=== PATIENT | female | born 1945 | race Caucasian/White ===

== ENCOUNTER 2020-05-24 11:49 | Observation (INO) ==
[2020-05-24] MEDS: Ringers Solution, Lactated 1,000 ML IVC SCH (12:28)
[2020-05-24 14:03] LABS: Adenovirus Not Detected (Not Detect); Bordetella Pertussis Not Detected (Not Detect); Chlamydophila pneumoniae Not Detected (Not Detect); Coronavirus 229E Not Detected (Not Detect); Coronavirus HKU1 Not Detected (Not Detect); Coronavirus NL63 Not Detected (Not Detect); Coronavirus OC43 Not Detected (Not Detect); Human Metapneumovirus Not Detected (Not Detect); Human Rhinovirus/Enterovirus Not Detected (Not Detect); Influenza A Subtype 2009 H1 Not Detected (Not Detect); Influenza B Not Detected (Not Detect); Mycoplasma pneumoniae Not Detected (Not Detect); Parainfluenza Virus 1 Not Detected (Not Detect); Parainfluenza Virus 2 Not Detected (Not Detect); Parainfluenza Virus 3 Not Detected (Not Detect); Parainfluenza Virus 4 Not Detected (Not Detect); Respiratory Syncytial Virus Not Detected (Not Detect); SARS-CoV-2 Not Detected (Not Detect)
[2020-05-24] MEDS ORDERED: Lidocaine -MPF 4% 5 ML AMPUL ONE ×2 (15:20→15:22)
[2020-05-24] MEDS ORDERED: Ondansetron 4 MG/2 ML VIAL ONE (15:20)
[2020-05-24] MEDS ORDERED: Dexamethasone 4 MG/ML VIAL ONE ×2 (15:20→15:23)
[2020-05-24] MEDS ORDERED: Lidocaine -MPF 2% 2 ML VIAL ONE (15:20)
[2020-05-24] MEDS ORDERED: *HR* FentaNYL (PF) 100 MCG/2 ML VIAL ONE (15:20)
[2020-05-24] MEDS ORDERED: *HR* Propofol 200 MG/20 ML VIAL IVP ONE (15:21)
[2020-05-24] MEDS ORDERED: EPHEDrine 50 MG/ML VIAL ONE (15:55)
[2020-05-24] MEDS ORDERED: *HR* EPINEPHrine 1 MG/10 ML SYRINGE INTRATRACH PRN (16:37)
[2020-05-24] MEDS ORDERED: Albuterol 2.5 MG/3 ML NEBULIZER IH ONE (17:56)
[2020-05-24] MEDS ORDERED: Albuterol 2.5 MG/3 ML NEBULIZER ONE (17:57)
[2020-05-24 19:41] LABS: Appearance of Body Fluid Cloudy (Clear); Volume of Body Fluid 15 mL
[2020-05-24] MEDS ORDERED: Naloxone 0.4 MG/ML INJ IVP PRN (19:55)
[2020-05-24] MEDS ORDERED: Ondansetron 4 MG/2 ML VIAL IVP PRN (19:55)
[2020-05-24] MEDS ORDERED: *HR* Promethazine 25 MG/ML VIAL IM PRN (19:55)
[2020-05-24 20:42] LABS: Hematocrit 38.8 % (35.3-44.9); Hemoglobin 12.1 g/dL (11.5-15.4); Mean Corpuscular HGB Conc 31.2 g/dL (31.6-35.5); Mean Corpuscular Hemoglobin 31.3 pg (28.0-33.3); Mean Corpuscular Volume 100.5 fL (83.0-100.0); Mean Platelet Volume 9.2 fL (9.4-12.4); Platelet Count 149 K/mcL (140-400); Red Blood Count 3.86 M/mcL (3.82-4.97); Red Cell Distribution Width 13.2 % (11.5-14.5); White Blood Count 6.4 K/mcL (4.3-11.1)
[2020-05-24 21:04] LABS: BUN/Creatinine Ratio 14 (6-26); Blood Urea Nitrogen 13 mg/dL (8-23); Calcium 9.4 mg/dL (8.6-10.3); Carbon Dioxide 27 mEq/L (23-29); Chloride 106 mEq/L (98-107); Glucose 115 mg/dL (70-105); Osmolality,Calculated 289 (280-300); Potassium 4.6 mEq/L (3.5-5.1); Sodium 139 mEq/L (136-145); eGFR For African Americans > 60 (> 60); eGFR For Non-African Americans 58 (> 60)
[2020-05-24 21:20] LABS: Appearance of Body Fluid Hazy (Clear); Volume of Body Fluid 17 mL
[2020-05-24] MEDS ORDERED: Ipratropium/Albuterol Neb 3 ML IH PRN (22:07)
[2020-05-25] MEDS: Ipratropium/Albuterol Neb 3 ML IH SCH ×5 (06:21→20:53)
[2020-05-25] MEDS: Ringers Solution, Lactated 1,000 ML IVC SCH (08:58)
[2020-05-25] MEDS: predniSONE 20 MG TABLET PO SCH (16:52)
[2020-05-26] MEDS: Ipratropium/Albuterol Neb 3 ML IH SCH ×5 (00:48→15:16)
[2020-05-26 01:54] LABS: Basophils % 0.2 %; Hematocrit 35.3 % (35.3-44.9); Hemoglobin 11.3 g/dL (11.5-15.4); Immature Granulocytes % 0.3 % (0-4); Lymphocytes # 0.8 K/mcL (0.6-4.6); Lymphocytes % 11.5 %; Mean Corpuscular Hemoglobin 31.8 pg (28.0-33.3); Mean Corpuscular Volume 99.4 fL (83.0-100.0); Mean Platelet Volume 9.6 fL (9.4-12.4); Monocytes # 0.1 K/mcL (0.0-1.3); Monocytes % 1.8 %; Neutrophils # 5.6 K/mcL (1.6-8.9); Platelet Count 147 K/mcL (140-400); Red Blood Count 3.55 M/mcL (3.82-4.97); Segmented Neutrophils % 86.2 %; White Blood Count 6.5 K/mcL (4.3-11.1)
[2020-05-26] MEDS: predniSONE 20 MG TABLET PO SCH (09:00)
[2020-05-26] MEDS ORDERED: Fluticasone Propionate Nasal 50 MCG/SPRAY BOTTLE NS SCH (09:00)
[2020-05-26 11:10] VITALS: BP 148/74
[2020-05-26] MEDS ORDERED: Acetaminophen 325 MG TABLET PO PRN (13:26)
== END 2020-05-26 16:26 | disposition home or self-care (01) ==
LOC: 3BNU 11:49 → SAMDAY 11:49 → 3BNU 20:02
PROVIDERS: ADMIT Internal Medicine; ATTEND Internal Medicine

== ENCOUNTER 2021-08-15 11:49 | Inpatient (IN) ==
[2021-08-15] MEDS ORDERED: 0.9 % Sodium Chloride 500 ML IVC ONE ×2 (12:33→18:49)
[2021-08-15 13:00] LABS: Basophils % 0.3 %; Eosinophils % 0.3 %; Hematocrit 31.7 % (35.3-44.9); Hemoglobin 10.3 g/dL (11.5-15.4); Immature Granulocytes % 0.9 % (0-4); Lymphocytes # 0.5 K/mcL (0.6-4.6); Lymphocytes % 7.7 %; Mean Corpuscular HGB Conc 32.5 g/dL (31.6-35.5); Mean Corpuscular Hemoglobin 32.2 pg (28.0-33.3); Mean Corpuscular Volume 99.1 fL (83.0-100.0); Mean Platelet Volume 9.1 fL (9.4-12.4); Monocytes # 0.3 K/mcL (0.0-1.3); Monocytes % 4.9 %; Platelet Count 164 K/mcL (140-400); Red Cell Distribution Width 13.2 % (11.5-14.5); Segmented Neutrophils % 85.9 %
[2021-08-15 13:21] LABS: Albumin 3.9 g/dL (3.5-5.7); Albumin/Globulin Ratio 1.4 (1.1-2.2); Bilirubin,Direct 0.2 mg/dL (0.0-0.2); Bilirubin,Indirect 0.6 mg/dL (0.0-1.0); Bilirubin,Total 0.8 mg/dL (0.3-1.0); Calcium 9.1 mg/dL (8.6-10.3); Globulin 2.8 g/dL (2.4-3.5); Potassium 4.6 mEq/L (3.5-5.1); Total Protein 6.7 g/dL (6.4-8.9); Troponin I 0.28 ng/mL (< 0.04)
[2021-08-15] MEDS ORDERED: Isovue-370 500 ML BOTTLE IVP ONE (13:28)
[2021-08-15 13:43] LABS: Influenza A PCR Negative (Negative); Influenza B PCR Negative (Negative); Resp. Syncytial Virus PCR Negative (Negative)
[2021-08-15 13:49] LABS: SARS-CoV-2 by PCR (In House) Negative (Negative)
[2021-08-15] MEDS ORDERED: *HR* Heparin 5,000 UNIT/ML VIAL IVP PRN ×2 (15:59)
[2021-08-15] MEDS ORDERED: *HR* Heparin 5,000 UNIT/ML VIAL IVP ONE (15:59)
[2021-08-15 16:00] LABS: Bilirubin,Urine Negative (Negative); Blood,Urine Negative (Negative); Clarity,Urine Clear (Clear); Color,Urine Yellow (Yellow); Glucose,Urine (UA) Normal (Normal); Ketones,Urine Negative (Negative); Leukocyte Esterase,Urine Large (Negative); Nitrite,Urine Negative (Negative); Protein,Urine Trace mg/dL (Neg-Trace); Specific Gravity,Urine > 1.030 (1.010-1.025); Squamous Epithelial Cell,Urine Moderate per hpf (None-Few); Urobilinogen,Urine Normal (Normal)
[2021-08-15] MEDS ORDERED: Heparin 25,000UNIT/250ML 1/2NS 25,000 UNIT/250 ML IV.SOLN IVC SCH (16:00)
[2021-08-15] MEDS ORDERED: cefTRIAXone 1,000 MG in Water for inj. (sterile) 10 ML IVP ONE (16:06)
[2021-08-15] MEDS ORDERED: Naloxone 0.4 MG/ML INJ IVP PRN (16:16)
[2021-08-15] MEDS ORDERED: Ondansetron 4 MG/2 ML VIAL IVP PRN (16:16)
[2021-08-15] MEDS ORDERED: Aspirin 325 MG TABLET PO ONE (16:49)
[2021-08-15] MEDS ORDERED: Perflutren Lipid Microsphere 1.3 ML in 0.9 % Sodium Chloride 8.7 ML IVP PRN (16:52)
[2021-08-15] MEDS ORDERED: Ipratropium 1 PUFF INHALER IH PRN (17:03)
[2021-08-15 17:09] LABS: Hematocrit 30.1 % (35.3-44.9); Hemoglobin 9.5 g/dL (11.5-15.4); Mean Corpuscular HGB Conc 31.6 g/dL (31.6-35.5); Mean Corpuscular Hemoglobin 31.3 pg (28.0-33.3); Mean Platelet Volume 8.9 fL (9.4-12.4); Platelet Count 129 K/mcL (140-400); Red Blood Count 3.04 M/mcL (3.82-4.97); Red Cell Distribution Width 13.2 % (11.5-14.5); White Blood Count 6.7 K/mcL (4.3-11.1)
[2021-08-15 17:27] LABS: Heparin anti-factor XA UFH < 0.04 IU/mL (0.30-0.70)
[2021-08-15] MEDS ORDERED: Albumin 25% 25gram/100mL 25 GM/100 ML IV.SOLN IVPB ONE (20:48)
[2021-08-16 01:03] LABS: Basophils % 0.1 %; Hematocrit 27.7 % (35.3-44.9); Hemoglobin 8.6 g/dL (11.5-15.4); Immature Granulocytes % 0.7 % (0-4); Lymphocytes # 0.3 K/mcL (0.6-4.6); Lymphocytes % 3.8 %; Mean Corpuscular Hemoglobin 30.7 pg (28.0-33.3); Mean Corpuscular Volume 98.9 fL (83.0-100.0); Mean Platelet Volume 9.5 fL (9.4-12.4); Monocytes # 0.5 K/mcL (0.0-1.3); Monocytes % 5.3 %; Neutrophils # 7.8 K/mcL (1.6-8.9); Platelet Count 111 K/mcL (140-400); Red Cell Distribution Width 13.3 % (11.5-14.5); Segmented Neutrophils % 90.1 %; White Blood Count 8.7 K/mcL (4.3-11.1)
[2021-08-16 01:24] LABS: Calcium 8.2 mg/dL (8.6-10.3); Magnesium 1.8 mg/dL (1.6-2.6); Potassium 5.1 mEq/L (3.5-5.1)
[2021-08-16 01:50] LABS: Folate > 22.3 ng/mL (3.0-16.0); Vitamin B12 1391 pg/mL (250-1100)
[2021-08-16] MEDS ORDERED: Spironolactone 12.5 MG TABLET PO SCH (09:00)
[2021-08-16] MEDS: Metoprolol XL (24 HR) Succ 50 MG TAB.ER.24H PO SCH (10:15)
[2021-08-16] MEDS: Aspirin 81 MG TAB.CHEW PO SCH (11:23)
[2021-08-16] MEDS: Fluticasone Propionate Nasal 50 MCG/SPRAY BOTTLE NS SCH (14:46)
[2021-08-17 02:37] LABS: Basophils % 0.1 %; Hemoglobin 9.8 g/dL (11.5-15.4); Immature Granulocytes % 0.6 % (0-4); Lymphocytes # 0.4 K/mcL (0.6-4.6); Lymphocytes % 5.3 %; Mean Corpuscular HGB Conc 30.6 g/dL (31.6-35.5); Mean Corpuscular Hemoglobin 30.8 pg (28.0-33.3); Mean Corpuscular Volume 100.6 fL (83.0-100.0); Mean Platelet Volume 9.3 fL (9.4-12.4); Monocytes # 0.2 K/mcL (0.0-1.3); Monocytes % 2.8 %; Neutrophils # 6.5 K/mcL (1.6-8.9); Platelet Count 116 K/mcL (140-400); Red Blood Count 3.18 M/mcL (3.82-4.97); Red Cell Distribution Width 13.6 % (11.5-14.5); Segmented Neutrophils % 91.2 %; White Blood Count 7.2 K/mcL (4.3-11.1)
[2021-08-17 02:49] LABS: BUN/Creatinine Ratio 23 (6-26); Blood Urea Nitrogen 19 mg/dL (8-23); Carbon Dioxide 23 mEq/L (23-29); Chloride 108 mEq/L (98-107); Glucose 85 mg/dL (70-105); Magnesium 1.8 mg/dL (1.6-2.6); Osmolality,Calculated 280 (280-300); Potassium 4.6 mEq/L (3.5-5.1); Sodium 134 mEq/L (136-145); eGFR For African Americans > 60 (> 60); eGFR For Non-African Americans > 60 (> 60)
[2021-08-17] MEDS: Aspirin 81 MG TAB.CHEW PO SCH (09:08)
[2021-08-17] MEDS: Metoprolol XL (24 HR) Succ 50 MG TAB.ER.24H PO SCH (09:08)
[2021-08-17] MEDS: Fluticasone Propionate Nasal 50 MCG/SPRAY BOTTLE NS SCH (09:09)
[2021-08-17] MEDS ORDERED: Furosemide 20 MG/2 ML VIAL IVP SCH (18:00)
[2021-08-18] MEDS: Metoprolol XL (24 HR) Succ 50 MG TAB.ER.24H PO SCH (08:30)
[2021-08-18] MEDS: Fluticasone Propionate Nasal 50 MCG/SPRAY BOTTLE NS SCH (08:30)
[2021-08-18] MEDS: Aspirin 81 MG TAB.CHEW PO SCH (08:30)
[2021-08-18] MEDS ORDERED: Furosemide 20 MG/2 ML VIAL IVP ONE (10:10)
[2021-08-19 02:49] LABS: BUN/Creatinine Ratio 24 (6-26); Blood Urea Nitrogen 24 mg/dL (8-23); Calcium 9.1 mg/dL (8.6-10.3); Carbon Dioxide 26 mEq/L (23-29); Chloride 100 mEq/L (98-107); Glucose 82 mg/dL (70-105); Osmolality,Calculated 279 (280-300); Potassium 4.6 mEq/L (3.5-5.1); Sodium 133 mEq/L (136-145); eGFR For African Americans > 60 (> 60); eGFR For Non-African Americans 55 (> 60)
[2021-08-19] MEDS ORDERED: *HR* Metoprolol 5 MG/5 ML VIAL IVP ONE (04:00)
[2021-08-19] MEDS ORDERED: Magnesium Sulfate 1 GM/102 ML PIGGYBACK IVPB ONE (04:02)
[2021-08-19] MEDS ORDERED: 0.9 % Sodium Chloride 250 ML IV ONE (04:14)
[2021-08-19] MEDS ORDERED: 0.9 % Sodium Chloride 250 ML ONE (04:15)
[2021-08-19] MEDS ORDERED: *HR* Heparin 5,000 UNIT/ML VIAL IVP ONE (04:27)
[2021-08-19] MEDS ORDERED: *HR* Heparin 5,000 UNIT/ML VIAL IVP PRN ×2 (04:27)
[2021-08-19] MEDS ORDERED: Amiodarone Premix 360 MG/200 ML BAG IVC ONE (04:57)
[2021-08-19] MEDS ORDERED: Amiodarone Premix 150 MG/100 ML BAG IVPB ONE (04:57)
[2021-08-19] MEDS: Heparin 25,000UNIT/250ML 1/2NS 25,000 UNIT/250 ML IV.SOLN IVC SCH ×2 (05:09→06:02)
[2021-08-19 05:18] LABS: Hematocrit 29.6 % (35.3-44.9); Hemoglobin 9.6 g/dL (11.5-15.4); Mean Corpuscular HGB Conc 32.4 g/dL (31.6-35.5); Mean Corpuscular Hemoglobin 31.6 pg (28.0-33.3); Mean Corpuscular Volume 97.4 fL (83.0-100.0); Mean Platelet Volume 9.4 fL (9.4-12.4); Platelet Count 146 K/mcL (140-400); Red Blood Count 3.04 M/mcL (3.82-4.97); Red Cell Distribution Width 13.4 % (11.5-14.5)
[2021-08-19 05:39] LABS: Heparin anti-factor XA UFH < 0.04 IU/mL (0.30-0.70)
[2021-08-19 05:40] LABS: Magnesium 1.7 mg/dL (1.6-2.6); Phosphorous 2.6 mg/dL (2.7-4.5); Prothrombin Time 11.2 Seconds (9.4-12.1)
[2021-08-19 05:42] LABS: D-Dimer 1679 ng/mLFEU (0-500)
[2021-08-19 05:44] LABS: Troponin I 0.25 ng/mL (< 0.04)
[2021-08-19] MEDS ORDERED: Calcium Gluconate 1gm/50mL 1 GM/50 ML BAG IVPB ONE (06:03)
[2021-08-19] MEDS ORDERED: 0.9 % Sodium Chloride 250 ML IVC ONE (06:07)
[2021-08-19 06:09] LABS: Albumin 3.4 g/dL (3.5-5.7); Albumin/Globulin Ratio 1.3 (1.1-2.2); Bilirubin,Direct 0.4 mg/dL (0.0-0.2); Bilirubin,Indirect 1.2 mg/dL (0.0-1.0); Bilirubin,Total 1.6 mg/dL (0.3-1.0); Globulin 2.7 g/dL (2.4-3.5); Total Protein 6.1 g/dL (6.4-8.9)
[2021-08-19] MEDS: Metoprolol XL (24 HR) Succ 50 MG TAB.ER.24H PO SCH (08:29)
[2021-08-19] MEDS: Aspirin 81 MG TAB.CHEW PO SCH (08:30)
[2021-08-19] MEDS: Fluticasone Propionate Nasal 50 MCG/SPRAY BOTTLE NS SCH (09:47)
[2021-08-19] MEDS: Amiodarone Premix 360 MG/200 ML BAG IVC SCH ×2 (11:35→22:29)
[2021-08-19] MEDS ORDERED: Albumin Human 5% 12.5 GM/250 ML IV.SOLN IVPB ONE ×2 (14:50→16:45)
[2021-08-19] MEDS ORDERED: Albumin Human 5% 12.5 GM/250 ML IV.SOLN ONE ×2 (14:52→16:46)
[2021-08-20 05:06] LABS: VBG Ionized Calcium 1.26 mmol/L (1.15-1.35)
[2021-08-20 05:13] LABS: Basophils % 0.7 %; Eosinophils # 0.1 K/mcL (0.0-0.6); Eosinophils % 2.9 %; Hematocrit 27.4 % (35.3-44.9); Hemoglobin 8.8 g/dL (11.5-15.4); Immature Granulocytes % 0.7 % (0-4); Lymphocytes # 0.5 K/mcL (0.6-4.6); Lymphocytes % 14.7 %; Mean Corpuscular HGB Conc 32.1 g/dL (31.6-35.5); Mean Corpuscular Hemoglobin 31.7 pg (28.0-33.3); Mean Corpuscular Volume 98.6 fL (83.0-100.0); Mean Platelet Volume 9.2 fL (9.4-12.4); Monocytes # 0.5 K/mcL (0.0-1.3); Platelet Count 117 K/mcL (140-400); Red Blood Count 2.78 M/mcL (3.82-4.97); Red Cell Distribution Width 13.3 % (11.5-14.5); White Blood Count 3.1 K/mcL (4.3-11.1)
[2021-08-20 05:40] LABS: Magnesium 2.2 mg/dL (1.6-2.6); Phosphorous 3.8 mg/dL (2.7-4.5); Potassium 4.8 mEq/L (3.5-5.1); Troponin I 1.11 ng/mL (< 0.04)
[2021-08-20] MEDS ORDERED: *HR* Enoxaparin 30 MG/0.3 ML SYRINGE SQ SCH (06:00)
[2021-08-20] MEDS: Aspirin 81 MG TAB.CHEW PO SCH (08:20)
[2021-08-20] MEDS ORDERED: *HR* Amiodarone 200 MG TABLET PO ONE (09:47)
[2021-08-20] MEDS ORDERED: *HR* Heparin 5,000 UNIT/ML VIAL IVP ONE (09:54)
[2021-08-20] MEDS ORDERED: *HR* Heparin 5,000 UNIT/ML VIAL IVP PRN ×4 (09:54→20:51)
[2021-08-20] MEDS ORDERED: Heparin 25,000UNIT/250ML 1/2NS 25,000 UNIT/250 ML IV.SOLN IVC SCH ×2 (10:00→21:00)
[2021-08-20] MEDS ORDERED: *HR* Amiodarone 200 MG TABLET PO SCH (10:00)
[2021-08-20] MEDS: Fluticasone Propionate Nasal 50 MCG/SPRAY BOTTLE NS SCH (10:58)
[2021-08-20 11:41] LABS: Heparin anti-factor XA UFH 0.21 IU/mL (0.30-0.70)
[2021-08-20 11:42] LABS: Prothrombin Time 11.1 Seconds (9.4-12.1)
[2021-08-20] MEDS ORDERED: Naloxone 0.4 MG/ML INJ IVP PRN (14:19)
[2021-08-20] MEDS ORDERED: Ipratropium 1 PUFF INHALER IH PRN (14:19)
[2021-08-20] MEDS ORDERED: Ondansetron 4 MG/2 ML VIAL IVP PRN (14:19)
[2021-08-20] MEDS: Folic Acid 1 MG TABLET PO SCH (17:30)
[2021-08-20] MEDS: *HR* Amiodarone 200 MG TABLET PO SCH (19:43)
[2021-08-20 21:27] LABS: Hematocrit 26.8 % (35.3-44.9); Hemoglobin 8.6 g/dL (11.5-15.4); Mean Corpuscular HGB Conc 32.1 g/dL (31.6-35.5); Mean Corpuscular Hemoglobin 31.3 pg (28.0-33.3); Mean Corpuscular Volume 97.5 fL (83.0-100.0); Mean Platelet Volume 9.4 fL (9.4-12.4); Platelet Count 129 K/mcL (140-400); Red Blood Count 2.75 M/mcL (3.82-4.97); Red Cell Distribution Width 13.3 % (11.5-14.5); White Blood Count 3.3 K/mcL (4.3-11.1)
[2021-08-20 21:34] LABS: Heparin anti-factor XA UFH 0.43 IU/mL (0.30-0.70)
[2021-08-20 21:35] LABS: Prothrombin Time 11.3 Seconds (9.4-12.1)
[2021-08-20] MEDS: Heparin 25,000UNIT/250ML 1/2NS 25,000 UNIT/250 ML IV.SOLN IVC SCH (21:45)
[2021-08-21 05:04] LABS: Basophils % 0.7 %; Eosinophils # 0.1 K/mcL (0.0-0.6); Eosinophils % 2.3 %; Hematocrit 26.1 % (35.3-44.9); Hemoglobin 8.3 g/dL (11.5-15.4); Immature Granulocytes % 0.7 % (0-4); Lymphocytes # 0.5 K/mcL (0.6-4.6); Lymphocytes % 17.8 %; Magnesium 1.8 mg/dL (1.6-2.6); Mean Corpuscular HGB Conc 31.8 g/dL (31.6-35.5); Mean Corpuscular Volume 97.4 fL (83.0-100.0); Mean Platelet Volume 9.7 fL (9.4-12.4); Monocytes # 0.5 K/mcL (0.0-1.3); Monocytes % 16.8 %; Neutrophils # 1.9 K/mcL (1.6-8.9); Platelet Count 111 K/mcL (140-400); Red Blood Count 2.68 M/mcL (3.82-4.97); Red Cell Distribution Width 13.2 % (11.5-14.5); Segmented Neutrophils % 61.7 %
[2021-08-21 05:05] LABS: BUN/Creatinine Ratio 30 (6-26); Blood Urea Nitrogen 30 mg/dL (8-23); Calcium 8.9 mg/dL (8.6-10.3); Carbon Dioxide 24 mEq/L (23-29); Chloride 101 mEq/L (98-107); Glucose 99 mg/dL (70-105); Osmolality,Calculated 280 (280-300); Potassium 4.7 mEq/L (3.5-5.1); Sodium 132 mEq/L (136-145); eGFR For African Americans > 60 (> 60); eGFR For Non-African Americans 53 (> 60)
[2021-08-21] MEDS: Cyanocobalamin (B-12) 1,000 MCG TABLET PO SCH (08:05)
[2021-08-21] MEDS: Aspirin 81 MG TAB.CHEW PO SCH (08:05)
[2021-08-21] MEDS: Fluticasone Propionate Nasal 50 MCG/SPRAY BOTTLE NS SCH (08:06)
[2021-08-21] MEDS: *HR* Amiodarone 200 MG TABLET PO SCH ×2 (08:06→20:29)
[2021-08-21] MEDS ORDERED: *HR* Midazolam HCl 2 MG/2 ML VIAL ONE (08:46)
[2021-08-21] MEDS ORDERED: *HR* FentaNYL (PF) 100 MCG/2 ML VIAL ONE (08:46)
[2021-08-21] MEDS ORDERED: Heparin 1,000 UNITS/500 mL 500 ML ONE (08:47)
[2021-08-21] MEDS ORDERED: 0.9 % Sodium Chloride 1,000 ML ONE ×2 (08:47→08:57)
[2021-08-21] MEDS ORDERED: *HR* Heparin 10,000 UNIT/10 ML VIAL ONE (08:47)
[2021-08-21] MEDS ORDERED: Nitroglycerin 1,000 MCG/5 ML VIAL IV ONE (08:47)
[2021-08-21] MEDS ORDERED: ISOVUE-370 200 ML INFUS..BTL ONE (08:47)
[2021-08-21] MEDS ORDERED: Metoprolol XL (24 HR) Succ 25 MG TAB.ER.24H PO SCH ×2 (09:00)
[2021-08-21] MEDS: Folic Acid 1 MG TABLET PO SCH (17:48)
[2021-08-21] MEDS: Heparin 25,000UNIT/250ML 1/2NS 25,000 UNIT/250 ML IV.SOLN IVC SCH (23:40)
[2021-08-22 05:02] LABS: Basophils % 0.4 %; Eosinophils # 0.1 K/mcL (0.0-0.6); Eosinophils % 2.1 %; Hematocrit 25.1 % (35.3-44.9); Immature Granulocytes % 0.4 % (0-4); Lymphocytes # 0.4 K/mcL (0.6-4.6); Mean Corpuscular HGB Conc 31.9 g/dL (31.6-35.5); Mean Corpuscular Hemoglobin 30.9 pg (28.0-33.3); Mean Corpuscular Volume 96.9 fL (83.0-100.0); Mean Platelet Volume 9.7 fL (9.4-12.4); Monocytes # 0.4 K/mcL (0.0-1.3); Monocytes % 18.9 %; Neutrophils # 1.4 K/mcL (1.6-8.9); Platelet Count 121 K/mcL (140-400); Red Blood Count 2.59 M/mcL (3.82-4.97); Red Cell Distribution Width 13.2 % (11.5-14.5); Segmented Neutrophils % 60.2 %; White Blood Count 2.3 K/mcL (4.3-11.1)
[2021-08-22 05:27] LABS: BUN/Creatinine Ratio 23 (6-26); Blood Urea Nitrogen 18 mg/dL (8-23); Calcium 9.2 mg/dL (8.6-10.3); Carbon Dioxide 27 mEq/L (23-29); Chloride 103 mEq/L (98-107); Glucose 92 mg/dL (70-105); Magnesium 1.7 mg/dL (1.6-2.6); Osmolality,Calculated 280 (280-300); Potassium 4.4 mEq/L (3.5-5.1); Sodium 134 mEq/L (136-145); eGFR For African Americans > 60 (> 60); eGFR For Non-African Americans > 60 (> 60)
[2021-08-22 05:31] LABS: Platelet Estimate Normal (Normal)
[2021-08-22] MEDS: Metoprolol XL (24 HR) Succ 50 MG TAB.ER.24H PO SCH (05:35)
[2021-08-22] MEDS: *HR* Amiodarone 200 MG TABLET PO SCH ×2 (08:41→20:59)
[2021-08-22] MEDS: Aspirin 81 MG TAB.CHEW PO SCH (08:41)
[2021-08-22] MEDS: Cyanocobalamin (B-12) 1,000 MCG TABLET PO SCH (08:41)
[2021-08-22] MEDS: Fluticasone Propionate Nasal 50 MCG/SPRAY BOTTLE NS SCH (08:41)
[2021-08-22] MEDS ORDERED: Metoprolol XL (24 HR) Succ 25 MG TAB.ER.24H PO SCH (09:00)
[2021-08-22] MEDS ORDERED: Isovue-370 500 ML BOTTLE IVP ONE (09:23)
[2021-08-22] MEDS ORDERED: 0.9 % Sodium Chloride 1,000 ML IVC SCH (10:15)
[2021-08-22] MEDS: Folic Acid 1 MG TABLET PO SCH (16:28)
[2021-08-23 05:32] LABS: Basophils % 0.8 %; Eosinophils # 0.1 K/mcL (0.0-0.6); Eosinophils % 2.3 %; Hematocrit 22.9 % (35.3-44.9); Hemoglobin 7.5 g/dL (11.5-15.4); Immature Granulocytes % 1.1 % (0-4); Lymphocytes % 24.8 %; Mean Corpuscular HGB Conc 32.8 g/dL (31.6-35.5); Mean Corpuscular Hemoglobin 31.9 pg (28.0-33.3); Mean Corpuscular Volume 97.4 fL (83.0-100.0); Mean Platelet Volume 9.4 fL (9.4-12.4); Monocytes # 0.5 K/mcL (0.0-1.3); Monocytes % 20.2 %; Neutrophils # 1.3 K/mcL (1.6-8.9); Platelet Count 134 K/mcL (140-400); Red Blood Count 2.35 M/mcL (3.82-4.97); Red Cell Distribution Width 13.5 % (11.5-14.5); Segmented Neutrophils % 50.8 %; White Blood Count 2.6 K/mcL (4.3-11.1)
[2021-08-23 05:44] LABS: BUN/Creatinine Ratio 14 (6-26); Blood Urea Nitrogen 12 mg/dL (8-23); Calcium 8.9 mg/dL (8.6-10.3); Carbon Dioxide 28 mEq/L (23-29); Chloride 104 mEq/L (98-107); Glucose 90 mg/dL (70-105); Magnesium 1.6 mg/dL (1.6-2.6); Osmolality,Calculated 277 (280-300); Potassium 4.2 mEq/L (3.5-5.1); Sodium 134 mEq/L (136-145); eGFR For African Americans > 60 (> 60); eGFR For Non-African Americans > 60 (> 60)
[2021-08-23 05:49] LABS: Lymphocytes # 0.6 K/mcL (0.6-4.6)
[2021-08-23 06:53] LABS: Platelet Estimate Slight Decrease (Normal)
[2021-08-23] MEDS: Heparin 25,000UNIT/250ML 1/2NS 25,000 UNIT/250 ML IV.SOLN IVC SCH ×2 (07:04→09:45)
[2021-08-23] MEDS: Iron Sucrose Complex 200 MG in 0.9 % Sodium Chloride 100 ML IVPB SCH (08:03)
[2021-08-23] MEDS: Cyanocobalamin (B-12) 1,000 MCG TABLET PO SCH (08:05)
[2021-08-23] MEDS: *HR* Amiodarone 200 MG TABLET PO SCH ×2 (08:05→20:16)
[2021-08-23] MEDS: Magnesium Oxide 400 MG TABLET PO SCH (08:05)
[2021-08-23] MEDS: Fluticasone Propionate Nasal 50 MCG/SPRAY BOTTLE NS SCH (08:05)
[2021-08-23] MEDS: Aspirin 81 MG TAB.CHEW PO SCH (08:05)
[2021-08-23 14:06] LABS: Hematocrit 23.7 % (35.3-44.9); Hemoglobin 7.6 g/dL (11.5-15.4)
[2021-08-23] MEDS: Folic Acid 1 MG TABLET PO SCH (16:24)
[2021-08-24 05:56] LABS: Basophils % 0.9 %; Eosinophils # 0.1 K/mcL (0.0-0.6); Eosinophils % 2.1 %; Hematocrit 23.4 % (35.3-44.9); Hemoglobin 7.6 g/dL (11.5-15.4); Immature Granulocytes % 1.7 % (0-4); Lymphocytes # 0.5 K/mcL (0.6-4.6); Lymphocytes % 22.2 %; Mean Corpuscular HGB Conc 32.5 g/dL (31.6-35.5); Mean Corpuscular Hemoglobin 31.8 pg (28.0-33.3); Mean Corpuscular Volume 97.9 fL (83.0-100.0); Mean Platelet Volume 9.4 fL (9.4-12.4); Monocytes # 0.5 K/mcL (0.0-1.3); Monocytes % 23.1 %; Neutrophils # 1.2 K/mcL (1.6-8.9); Platelet Count 145 K/mcL (140-400); Red Blood Count 2.39 M/mcL (3.82-4.97); Red Cell Distribution Width 13.8 % (11.5-14.5); White Blood Count 2.3 K/mcL (4.3-11.1)
[2021-08-24 06:15] LABS: BUN/Creatinine Ratio 14 (6-26); Blood Urea Nitrogen 12 mg/dL (8-23); Calcium 9.2 mg/dL (8.6-10.3); Carbon Dioxide 29 mEq/L (23-29); Chloride 102 mEq/L (98-107); Glucose 99 mg/dL (70-105); Osmolality,Calculated 282 (280-300); Potassium 4.3 mEq/L (3.5-5.1); Sodium 136 mEq/L (136-145); eGFR For African Americans > 60 (> 60); eGFR For Non-African Americans > 60 (> 60)
[2021-08-24] MEDS: Iron Sucrose Complex 200 MG in 0.9 % Sodium Chloride 100 ML IVPB SCH (08:08)
[2021-08-24] MEDS: Cyanocobalamin (B-12) 1,000 MCG TABLET PO SCH (08:09)
[2021-08-24] MEDS: *HR* Amiodarone 200 MG TABLET PO SCH ×2 (08:09→20:52)
[2021-08-24] MEDS: Aspirin 81 MG TAB.CHEW PO SCH (08:09)
[2021-08-24] MEDS: Magnesium Oxide 400 MG TABLET PO SCH (08:09)
[2021-08-24] MEDS: Fluticasone Propionate Nasal 50 MCG/SPRAY BOTTLE NS SCH (08:10)
[2021-08-24] MEDS: Heparin 25,000UNIT/250ML 1/2NS 25,000 UNIT/250 ML IV.SOLN IVC SCH (15:03)
[2021-08-24] MEDS: Folic Acid 1 MG TABLET PO SCH (17:26)
[2021-08-24] MEDS ORDERED: Apixaban 2.5 MG TABLET PO ONE (18:00)
[2021-08-24] MEDS ORDERED: Saline Nasal Spray 44 ML BOTTLE NS PRN (18:56)
[2021-08-24] MEDS ORDERED: Apixaban 5 MG TABLET PO SCH (21:00)
[2021-08-25 07:00] LABS: Basophils % 0.8 %; Eosinophils % 1.2 %; Hemoglobin 7.3 g/dL (11.5-15.4); Lymphocytes # 0.6 K/mcL (0.6-4.6); Lymphocytes % 24.9 %; Mean Corpuscular HGB Conc 31.7 g/dL (31.6-35.5); Mean Corpuscular Hemoglobin 31.5 pg (28.0-33.3); Mean Corpuscular Volume 99.1 fL (83.0-100.0); Mean Platelet Volume 9.1 fL (9.4-12.4); Monocytes # 0.5 K/mcL (0.0-1.3); Monocytes % 21.3 %; Nucleated Red Blood Cells 0.8 /100 WBC (0); Platelet Count 135 K/mcL (140-400); Red Blood Count 2.32 M/mcL (3.82-4.97); Red Cell Distribution Width 14.3 % (11.5-14.5); Segmented Neutrophils % 49.8 %; White Blood Count 2.5 K/mcL (4.3-11.1)
[2021-08-25 07:04] LABS: Neutrophils # 1.3 K/mcL (1.6-8.9)
[2021-08-25 07:12] LABS: BUN/Creatinine Ratio 11 (6-26); Blood Urea Nitrogen 10 mg/dL (8-23); Calcium 9.2 mg/dL (8.6-10.3); Carbon Dioxide 30 mEq/L (23-29); Chloride 100 mEq/L (98-107); Glucose 83 mg/dL (70-105); Osmolality,Calculated 278 (280-300); Potassium 4.3 mEq/L (3.5-5.1); Sodium 135 mEq/L (136-145); eGFR For African Americans > 60 (> 60); eGFR For Non-African Americans > 60 (> 60)
[2021-08-25] MEDS ORDERED: 0.9 % Sodium Chloride 250 ML IVC SCH (07:30)
[2021-08-25 08:20] LABS: Platelet Estimate Slight Decrease (Normal)
[2021-08-25] MEDS: Magnesium Oxide 400 MG TABLET PO SCH (10:04)
[2021-08-25] MEDS: Cyanocobalamin (B-12) 1,000 MCG TABLET PO SCH (10:04)
[2021-08-25] MEDS: Apixaban 5 MG TABLET PO SCH ×2 (10:05→20:51)
[2021-08-25] MEDS: *HR* Amiodarone 200 MG TABLET PO SCH ×2 (10:05→20:51)
[2021-08-25] MEDS: Fluticasone Propionate Nasal 50 MCG/SPRAY BOTTLE NS SCH (10:05)
[2021-08-25] MEDS: Metoprolol XL (24 HR) Succ 25 MG TAB.ER.24H PO SCH (15:04)
[2021-08-25 16:15] LABS: Hematocrit 27.3 % (35.3-44.9)
[2021-08-25 16:22] LABS: Hemoglobin 8.9 g/dL (11.5-15.4)
[2021-08-25] MEDS: Folic Acid 1 MG TABLET PO SCH (17:36)
[2021-08-26 01:21] LABS: Basophils # 0.1 K/mcL (0.0-0.2); Basophils % 1.9 %; Eosinophils % 1.3 %; Hematocrit 28.8 % (35.3-44.9); Hemoglobin 9.3 g/dL (11.5-15.4); Immature Granulocytes % 1.6 % (0-4); Lymphocytes # 0.7 K/mcL (0.6-4.6); Lymphocytes % 22.8 %; Mean Corpuscular HGB Conc 32.3 g/dL (31.6-35.5); Mean Corpuscular Hemoglobin 31.3 pg (28.0-33.3); Mean Platelet Volume 8.5 fL (9.4-12.4); Monocytes # 0.6 K/mcL (0.0-1.3); Neutrophils # 1.7 K/mcL (1.6-8.9); Platelet Count 145 K/mcL (140-400); Red Blood Count 2.97 M/mcL (3.82-4.97); Red Cell Distribution Width 14.4 % (11.5-14.5); Segmented Neutrophils % 54.4 %; White Blood Count 3.1 K/mcL (4.3-11.1)
[2021-08-26 01:40] LABS: BUN/Creatinine Ratio 17 (6-26); Blood Urea Nitrogen 14 mg/dL (8-23); Calcium 9.6 mg/dL (8.6-10.3); Carbon Dioxide 27 mEq/L (23-29); Chloride 100 mEq/L (98-107); Glucose 93 mg/dL (70-105); Osmolality,Calculated 278 (280-300); Potassium 4.2 mEq/L (3.5-5.1); Sodium 134 mEq/L (136-145); eGFR For African Americans > 60 (> 60); eGFR For Non-African Americans > 60 (> 60)
[2021-08-26] MEDS: Apixaban 5 MG TABLET PO SCH (08:43)
[2021-08-26] MEDS: *HR* Amiodarone 200 MG TABLET PO SCH (08:43)
[2021-08-26] MEDS: Cyanocobalamin (B-12) 1,000 MCG TABLET PO SCH (08:43)
[2021-08-26] MEDS: Magnesium Oxide 400 MG TABLET PO SCH (08:44)
[2021-08-26] MEDS: Metoprolol XL (24 HR) Succ 25 MG TAB.ER.24H PO SCH (08:44)
[2021-08-26] MEDS: Fluticasone Propionate Nasal 50 MCG/SPRAY BOTTLE NS SCH (08:44)
[2021-08-26 11:17] VITALS: BP 114/65; PULSE 76; TEMP 97.6; O2SAT 96
== END 2021-08-26 17:37 | disposition home or self-care (01) | DRG 280 ==
LOC: EMEROOARM 11:49 → 2ANU 11:49 → SUATTDRO 18:05 → 2ANU 20:23 → SUATTDRO 08-18 14:14 → ICNU 08-19 04:53 → 2ANU 08-20 20:02
PROVIDERS: ADMIT Student in an Organized Health Care Education/Training Program; ATTEND Internal Medicine

== ENCOUNTER 2022-04-22 12:26 | Inpatient (IN) ==
[2022-04-22 13:00] LABS: Basophils % 0.6 %; Eosinophils % 0.6 %; Hematocrit 31.2 % (35.3-44.9); Hemoglobin 9.9 g/dL (11.5-15.4); Immature Granulocytes % 0.4 % (0-4); Lymphocytes # 0.6 K/mcL (0.6-4.6); Lymphocytes % 13.4 %; Mean Corpuscular HGB Conc 31.7 g/dL (31.6-35.5); Mean Corpuscular Hemoglobin 31.5 pg (28.0-33.3); Mean Corpuscular Volume 99.4 fL (83.0-100.0); Mean Platelet Volume 8.8 fL (9.4-12.4); Monocytes # 0.4 K/mcL (0.0-1.3); Monocytes % 8.3 %; Neutrophils # 3.6 K/mcL (1.6-8.9); Platelet Count 153 K/mcL (140-400); Red Blood Count 3.14 M/mcL (3.82-4.97); Red Cell Distribution Width 15.3 % (11.5-14.5); Segmented Neutrophils % 76.7 %; White Blood Count 4.7 K/mcL (4.3-11.1)
[2022-04-22 13:17] LABS: Calcium 9.4 mg/dL (8.6-10.3); Potassium 3.9 mEq/L (3.5-5.1)
[2022-04-22 13:19] LABS: Troponin I 0.21 ng/mL (< 0.04)
[2022-04-22] MEDS ORDERED: Iopamidol - 370 500 ML MLS IVP ONE (14:28)
[2022-04-22] MEDS ORDERED: Furosemide 40 MG/4 ML VIAL IVP ONE (18:04)
[2022-04-22] MEDS ORDERED: Aspirin 81 MG TAB.CHEW PO ONE (19:17)
[2022-04-22] MEDS ORDERED: *HR* Heparin 5,000 UNIT/ML VIAL IVP PRN ×4 (19:18→23:10)
[2022-04-22] MEDS ORDERED: *HR* Heparin 5,000 UNIT/ML VIAL IVP ONE (19:18)
[2022-04-22] MEDS ORDERED: Heparin 25,000UNIT/250ML 1/2NS 25,000 UNIT/250 ML IV.SOLN IVC SCH (19:30)
[2022-04-22] MEDS ORDERED: Amiodarone Premix 150 MG/100 ML BAG IVPB ONE (19:49)
[2022-04-22] MEDS ORDERED: Amiodarone Premix 360 MG/200 ML BAG IVC ONE (19:49)
[2022-04-22] MEDS ORDERED: *HR* Metoprolol 5 MG/5 ML VIAL IVP ONE ×2 (19:52→19:54)
[2022-04-22] MEDS ORDERED: DilTIAZem 50 MG in 0.9 % Sodium Chloride 40 ML IVC SCH (20:15)
[2022-04-22 20:31] LABS: Hematocrit 30.1 % (35.3-44.9); Hemoglobin 9.6 g/dL (11.5-15.4); Mean Corpuscular HGB Conc 31.9 g/dL (31.6-35.5); Mean Corpuscular Hemoglobin 31.5 pg (28.0-33.3); Mean Corpuscular Volume 98.7 fL (83.0-100.0); Mean Platelet Volume 8.9 fL (9.4-12.4); Platelet Count 160 K/mcL (140-400); Red Blood Count 3.05 M/mcL (3.82-4.97); Red Cell Distribution Width 15.2 % (11.5-14.5); White Blood Count 4.6 K/mcL (4.3-11.1)
[2022-04-22 20:38] LABS: INR 1.2; Prothrombin Time 13.9 Seconds (9.4-12.1)
[2022-04-22 21:02] LABS: Heparin anti-factor XA UFH 1.08 IU/mL (0.30-0.70)
[2022-04-22 21:03] LABS: Troponin I 0.27 ng/mL (< 0.04)
[2022-04-22] MEDS ORDERED: Melatonin 3 MG TABLET PO PRN (21:56)
[2022-04-22] MEDS ORDERED: Naloxone 0.4 MG/ML INJ IVP PRN (21:56)
[2022-04-22] MEDS ORDERED: NON-FORMULARY MEDICATION 1 EACH EACH (Ipratropium/Albuterol Sulfate 4 GM Mist.Inhal) IH PRN (22:19)
[2022-04-22 22:20] LABS: Magnesium 1.6 mg/dL (1.6-2.6)
[2022-04-22] MEDS ORDERED: Ipratropium 1 PUFF INHALER IH PRN (22:30)
[2022-04-22] MEDS ORDERED: Ipratropium Neb 0.5 MG NEBULIZER IH ONE (22:45)
[2022-04-22] MEDS ORDERED: Levalbuterol Neb 1.25 MG/3 ML IH ONE (22:46)
[2022-04-22] MEDS: DilTIAZem 50 MG/50 ML IV.SOLN IVC SCH (22:47)
[2022-04-22 22:48] LABS: Adenovirus Not Detected (Not Detect); Bordetella Pertussis Not Detected (Not Detect); Chlamydophila pneumoniae Not Detected (Not Detect); Coronavirus 229E Not Detected (Not Detect); Coronavirus HKU1 Not Detected (Not Detect); Coronavirus NL63 Not Detected (Not Detect); Coronavirus OC43 Not Detected (Not Detect); Human Metapneumovirus Not Detected (Not Detect); Human Rhinovirus/Enterovirus Not Detected (Not Detect); Influenza A Subtype 2009 H1 Not Detected (Not Detect); Influenza B Not Detected (Not Detect); Mycoplasma pneumoniae Not Detected (Not Detect); Parainfluenza Virus 1 Not Detected (Not Detect); Parainfluenza Virus 2 Not Detected (Not Detect); Parainfluenza Virus 3 Not Detected (Not Detect); Parainfluenza Virus 4 Not Detected (Not Detect); Respiratory Syncytial Virus Not Detected (Not Detect); SARS-CoV-2 Not Detected (Not Detect)
[2022-04-23] MEDS: Heparin 25,000UNIT/250ML 1/2NS 25,000 UNIT/250 ML IV.SOLN IVC SCH ×2 (00:54→23:04)
[2022-04-23] MEDS ORDERED: *HR* Metoprolol 5 MG/5 ML VIAL IVP ONE (01:03)
[2022-04-23] MEDS ORDERED: *HR* Digoxin 0.5 MG/2 ML AMPUL IVP ONE (01:05)
[2022-04-23] MEDS ORDERED: Amiodarone Premix 360 MG/200 ML BAG IVC SCH (01:49)
[2022-04-23 02:49] LABS: Hemoglobin 10.7 g/dL (11.5-15.4); Mean Corpuscular HGB Conc 31.5 g/dL (31.6-35.5); Mean Corpuscular Hemoglobin 30.8 pg (28.0-33.3); Mean Platelet Volume 8.9 fL (9.4-12.4); Platelet Count 156 K/mcL (140-400); Red Blood Count 3.47 M/mcL (3.82-4.97); Red Cell Distribution Width 15.2 % (11.5-14.5); White Blood Count 6.2 K/mcL (4.3-11.1)
[2022-04-23 03:17] LABS: Albumin/Globulin Ratio 1.4 (1.1-2.2); Bilirubin,Total 1.4 mg/dL (0.3-1.0); Calcium 9.6 mg/dL (8.6-10.3); Globulin 2.8 g/dL (2.4-3.5); Magnesium 2.3 mg/dL (1.6-2.6); Phosphorous 3.4 mg/dL (2.7-4.5); Potassium 3.5 mEq/L (3.5-5.1); Total Protein 6.8 g/dL (6.4-8.9); Troponin I 0.22 ng/mL (< 0.04)
[2022-04-23] MEDS: DilTIAZem 50 MG/50 ML IV.SOLN IVC SCH ×4 (05:42→19:30)
[2022-04-23] MEDS ORDERED: *HR* Digoxin 0.5 MG/2 ML AMPUL IVP SCH (06:00)
[2022-04-23] MEDS ORDERED: Furosemide 20 MG/2 ML VIAL IVP SCH (08:00)
[2022-04-23] MEDS ORDERED: Metoprolol XL (24 HR) Succ 25 MG TAB.ER.24H PO SCH ×5 (09:00→21:00)
[2022-04-23] MEDS ORDERED: lisinopriL 5 MG TABLET PO SCH (09:00)
[2022-04-23] MEDS ORDERED: lisinopriL 10 MG TABLET PO SCH (09:00)
[2022-04-23] MEDS: Acetaminophen 325 MG TABLET PO PRN (13:38)
[2022-04-24 03:19] LABS: Basophils % 0.6 %; Eosinophils # 0.1 K/mcL (0.0-0.6); Eosinophils % 1.3 %; Hematocrit 31.6 % (35.3-44.9); Hemoglobin 10.1 g/dL (11.5-15.4); Lymphocytes # 0.6 K/mcL (0.6-4.6); Lymphocytes % 10.3 %; Mean Corpuscular Hemoglobin 31.7 pg (28.0-33.3); Mean Corpuscular Volume 99.1 fL (83.0-100.0); Mean Platelet Volume 8.8 fL (9.4-12.4); Monocytes # 0.8 K/mcL (0.0-1.3); Monocytes % 12.5 %; Neutrophils # 4.6 K/mcL (1.6-8.9); Nucleated Red Blood Cells 0.3 /100 WBC (0); Platelet Count 139 K/mcL (140-400); Red Blood Count 3.19 M/mcL (3.82-4.97); Red Cell Distribution Width 15.3 % (11.5-14.5); Segmented Neutrophils % 74.3 %; White Blood Count 6.2 K/mcL (4.3-11.1)
[2022-04-24] MEDS: Furosemide 40 MG/4 ML VIAL IVP SCH (09:31)
[2022-04-24 10:10] LABS: Calcium 9.4 mg/dL (8.6-10.3); Magnesium 1.9 mg/dL (1.6-2.6); Phosphorous 2.9 mg/dL (2.7-4.5); Potassium 3.3 mEq/L (3.5-5.1)
[2022-04-24] MEDS ORDERED: Ipratropium/Albuterol Neb 3 ML IH PRN (10:26)
[2022-04-24] MEDS ORDERED: Ipratropium/Albuterol Neb 3 ML IH ONE (10:26)
[2022-04-24] MEDS ORDERED: Ipratropium 1 PUFF INHALER IH PRN (10:39)
[2022-04-24] MEDS: Levalbuterol 1 PUFF INHALER IH SCH ×2 (16:01→22:31)
[2022-04-24] MEDS: Folic Acid 1 MG TABLET PO SCH (17:09)
[2022-04-24] MEDS ORDERED: NON-FORMULARY MEDICATION 1 EACH EACH (Atorvastatin Calcium [Lipitor] 80 MG Tablet) PO SCH (18:00)
[2022-04-25 03:31] LABS: Basophils # 0.1 K/mcL (0.0-0.2); Basophils % 0.8 %; Eosinophils # 0.1 K/mcL (0.0-0.6); Eosinophils % 1.9 %; Hematocrit 31.5 % (35.3-44.9); Hemoglobin 9.7 g/dL (11.5-15.4); Immature Granulocytes % 1.6 % (0-4); Lymphocytes # 0.7 K/mcL (0.6-4.6); Lymphocytes % 10.9 %; Mean Corpuscular HGB Conc 30.8 g/dL (31.6-35.5); Mean Corpuscular Hemoglobin 30.7 pg (28.0-33.3); Mean Corpuscular Volume 99.7 fL (83.0-100.0); Mean Platelet Volume 8.9 fL (9.4-12.4); Monocytes # 0.8 K/mcL (0.0-1.3); Monocytes % 12.3 %; Neutrophils # 4.6 K/mcL (1.6-8.9); Nucleated Red Blood Cells 0.5 /100 WBC (0); Platelet Count 180 K/mcL (140-400); Red Blood Count 3.16 M/mcL (3.82-4.97); Red Cell Distribution Width 15.7 % (11.5-14.5); Segmented Neutrophils % 72.5 %; White Blood Count 6.3 K/mcL (4.3-11.1)
[2022-04-25 03:48] LABS: Calcium 9.9 mg/dL (8.6-10.3); Magnesium 1.8 mg/dL (1.6-2.6); Phosphorous 2.9 mg/dL (2.7-4.5); Potassium 4.1 mEq/L (3.5-5.1)
[2022-04-25] MEDS: Levalbuterol 1 PUFF INHALER IH SCH ×4 (04:24→20:42)
[2022-04-25] MEDS: Multivit/Ca/Min/Fe/FA 1 TAB TABLET PO SCH (07:47)
[2022-04-25] MEDS: lisinopriL 5 MG TABLET PO SCH (07:47)
[2022-04-25] MEDS: Furosemide 40 MG/4 ML VIAL IVP SCH (07:47)
[2022-04-25] MEDS: Cyanocobalamin (B-12) 1,000 MCG TABLET PO SCH (07:48)
[2022-04-25] MEDS: Loratadine 10 MG TABLET PO SCH (07:48)
[2022-04-25] MEDS: Apixaban 5 MG TABLET PO SCH ×2 (07:48→20:46)
[2022-04-25] MEDS ORDERED: *HR* Digoxin 0.5 MG/2 ML AMPUL IVP SCH (09:00)
[2022-04-25] MEDS ORDERED: *HR* Amiodarone 200 MG TABLET PO SCH (10:00)
[2022-04-25] MEDS: polyethylene glycoL 3350 17 GM POWD.PACK PO SCH (12:21)
[2022-04-25] MEDS ORDERED: Amiodarone Premix 150 MG/100 ML BAG IVPB ONE (14:20)
[2022-04-25] MEDS ORDERED: Amiodarone Premix 360 MG/200 ML BAG IVC ONE ×2 (14:20→20:49)
[2022-04-25] MEDS: Folic Acid 1 MG TABLET PO SCH (17:19)
[2022-04-25] MEDS: Metoprolol XL (24 HR) Succ 50 MG TAB.ER.24H PO SCH (20:47)
[2022-04-25] MEDS: Amiodarone Premix 360 MG/200 ML BAG IVC SCH (20:50)
[2022-04-26] MEDS: Levalbuterol 1 PUFF INHALER IH SCH ×4 (04:07→22:36)
[2022-04-26] MEDS ORDERED: Amiodarone Premix 360 MG/200 ML BAG IVC SCH (08:00)
[2022-04-26] MEDS: Multivit/Ca/Min/Fe/FA 1 TAB TABLET PO SCH (08:02)
[2022-04-26] MEDS: Apixaban 5 MG TABLET PO SCH ×2 (08:02→19:52)
[2022-04-26] MEDS: Cyanocobalamin (B-12) 1,000 MCG TABLET PO SCH (08:02)
[2022-04-26] MEDS: Loratadine 10 MG TABLET PO SCH (08:02)
[2022-04-26] MEDS: Metoprolol XL (24 HR) Succ 50 MG TAB.ER.24H PO SCH ×2 (08:03→19:52)
[2022-04-26] MEDS: Furosemide 40 MG TABLET PO SCH (08:03)
[2022-04-26] MEDS: polyethylene glycoL 3350 17 GM POWD.PACK PO SCH (08:04)
[2022-04-26] MEDS: Amiodarone Premix 360 MG/200 ML BAG IVC SCH (08:04)
[2022-04-26] MEDS: lisinopriL 5 MG TABLET PO SCH (08:05)
[2022-04-26 11:16] LABS: Basophils % 0.8 %; Eosinophils # 0.1 K/mcL (0.0-0.6); Eosinophils % 2.5 %; Hematocrit 29.9 % (35.3-44.9); Hemoglobin 9.3 g/dL (11.5-15.4); Immature Granulocytes % 1.7 % (0-4); Lymphocytes # 0.6 K/mcL (0.6-4.6); Mean Corpuscular HGB Conc 31.1 g/dL (31.6-35.5); Mean Corpuscular Hemoglobin 31.2 pg (28.0-33.3); Mean Corpuscular Volume 100.3 fL (83.0-100.0); Mean Platelet Volume 8.9 fL (9.4-12.4); Monocytes # 0.7 K/mcL (0.0-1.3); Monocytes % 12.4 %; Neutrophils # 3.8 K/mcL (1.6-8.9); Nucleated Red Blood Cells 0.4 /100 WBC (0); Platelet Count 176 K/mcL (140-400); Red Blood Count 2.98 M/mcL (3.82-4.97); Red Cell Distribution Width 15.6 % (11.5-14.5); Segmented Neutrophils % 71.6 %; White Blood Count 5.3 K/mcL (4.3-11.1)
[2022-04-26 11:35] LABS: Magnesium 1.6 mg/dL (1.6-2.6); Phosphorous 3.9 mg/dL (2.7-4.5); Potassium 3.4 mEq/L (3.5-5.1)
[2022-04-26] MEDS: Folic Acid 1 MG TABLET PO SCH (17:50)
[2022-04-26] MEDS: *HR* Amiodarone 200 MG TABLET PO SCH (19:52)
[2022-04-27 01:20] LABS: Basophils % 0.7 %; Eosinophils # 0.1 K/mcL (0.0-0.6); Eosinophils % 3.1 %; Hematocrit 31.3 % (35.3-44.9); Hemoglobin 9.7 g/dL (11.5-15.4); Immature Granulocytes % 1.8 % (0-4); Lymphocytes # 0.7 K/mcL (0.6-4.6); Lymphocytes % 15.1 %; Mean Corpuscular Hemoglobin 30.7 pg (28.0-33.3); Mean Corpuscular Volume 99.1 fL (83.0-100.0); Mean Platelet Volume 8.8 fL (9.4-12.4); Monocytes # 0.6 K/mcL (0.0-1.3); Monocytes % 13.1 %; Platelet Count 172 K/mcL (140-400); Red Blood Count 3.16 M/mcL (3.82-4.97); Red Cell Distribution Width 15.4 % (11.5-14.5); Segmented Neutrophils % 66.2 %; White Blood Count 4.6 K/mcL (4.3-11.1)
[2022-04-27 02:01] LABS: Calcium 9.7 mg/dL (8.6-10.3); Magnesium 1.8 mg/dL (1.6-2.6); Phosphorous 4.1 mg/dL (2.7-4.5); Potassium 4.3 mEq/L (3.5-5.1); Thyroid Stimulating Hormone 2.57 mcIU/mL (0.340-5.600)
[2022-04-27] MEDS: Levalbuterol 1 PUFF INHALER IH SCH (04:20)
[2022-04-27] MEDS: polyethylene glycoL 3350 17 GM POWD.PACK PO SCH (08:22)
[2022-04-27] MEDS: Metoprolol XL (24 HR) Succ 50 MG TAB.ER.24H PO SCH ×2 (08:22→20:36)
[2022-04-27] MEDS: Loratadine 10 MG TABLET PO SCH (08:23)
[2022-04-27] MEDS: Furosemide 40 MG TABLET PO SCH (08:23)
[2022-04-27] MEDS: Cyanocobalamin (B-12) 1,000 MCG TABLET PO SCH (08:23)
[2022-04-27] MEDS: Multivit/Ca/Min/Fe/FA 1 TAB TABLET PO SCH (08:23)
[2022-04-27] MEDS: *HR* Amiodarone 200 MG TABLET PO SCH ×2 (08:23→20:37)
[2022-04-27] MEDS: Apixaban 5 MG TABLET PO SCH ×2 (08:23→20:37)
[2022-04-27] MEDS: lisinopriL 5 MG TABLET PO SCH (09:01)
[2022-04-27] MEDS: Ipratropium Neb 0.5 MG NEBULIZER IH SCH ×3 (10:49→22:49)
[2022-04-27] MEDS: Levalbuterol Neb 0.63 MG/3 ML IH SCH ×3 (10:49→22:48)
[2022-04-27] MEDS: Folic Acid 1 MG TABLET PO SCH (17:01)
[2022-04-28 03:44] LABS: Basophils % 0.6 %; Eosinophils # 0.2 K/mcL (0.0-0.6); Eosinophils % 3.6 %; Hematocrit 28.1 % (35.3-44.9); Hemoglobin 8.9 g/dL (11.5-15.4); Immature Granulocytes % 1.7 % (0-4); Lymphocytes # 0.9 K/mcL (0.6-4.6); Mean Corpuscular HGB Conc 31.7 g/dL (31.6-35.5); Mean Corpuscular Hemoglobin 31.4 pg (28.0-33.3); Mean Corpuscular Volume 99.3 fL (83.0-100.0); Mean Platelet Volume 8.8 fL (9.4-12.4); Monocytes # 0.6 K/mcL (0.0-1.3); Monocytes % 12.8 %; Platelet Count 158 K/mcL (140-400); Red Blood Count 2.83 M/mcL (3.82-4.97); Red Cell Distribution Width 15.1 % (11.5-14.5); Segmented Neutrophils % 63.3 %; White Blood Count 4.8 K/mcL (4.3-11.1)
[2022-04-28] MEDS: Levalbuterol Neb 0.63 MG/3 ML IH SCH ×4 (04:13→22:10)
[2022-04-28] MEDS: Ipratropium Neb 0.5 MG NEBULIZER IH SCH ×4 (04:14→22:10)
[2022-04-28] MEDS ORDERED: Cyanocobalamin (B-12) 1,000 MCG/ML VIAL SQ ONE (07:43)
[2022-04-28] MEDS ORDERED: Iron Sucrose Complex 200 MG in 0.9 % Sodium Chloride 100 ML IVPB ONE (07:43)
[2022-04-28] MEDS: Loratadine 10 MG TABLET PO SCH (08:31)
[2022-04-28] MEDS: *HR* Amiodarone 200 MG TABLET PO SCH ×2 (08:31→19:47)
[2022-04-28] MEDS: Apixaban 5 MG TABLET PO SCH ×2 (08:34→19:46)
[2022-04-28] MEDS: Cyanocobalamin (B-12) 1,000 MCG TABLET PO SCH (08:34)
[2022-04-28] MEDS: Metoprolol XL (24 HR) Succ 50 MG TAB.ER.24H PO SCH ×2 (08:34→19:46)
[2022-04-28] MEDS: lisinopriL 5 MG TABLET PO SCH (08:34)
[2022-04-28] MEDS: Multivit/Ca/Min/Fe/FA 1 TAB TABLET PO SCH (08:34)
[2022-04-28] MEDS: Furosemide 40 MG TABLET PO SCH (08:35)
[2022-04-28] MEDS: polyethylene glycoL 3350 17 GM POWD.PACK PO SCH (11:28)
[2022-04-28] MEDS: Folic Acid 1 MG TABLET PO SCH (17:49)
[2022-04-28] MEDS: Acetaminophen 325 MG TABLET PO PRN (19:47)
[2022-04-29 03:06] VITALS: TEMP 98.1
[2022-04-29] MEDS: Ipratropium Neb 0.5 MG NEBULIZER IH SCH ×3 (04:22→15:06)
[2022-04-29] MEDS: Levalbuterol Neb 0.63 MG/3 ML IH SCH ×3 (04:22→15:06)
[2022-04-29 06:03] LABS: Hematocrit 28.9 % (35.3-44.9); Mean Corpuscular HGB Conc 31.1 g/dL (31.6-35.5); Mean Corpuscular Hemoglobin 30.7 pg (28.0-33.3); Mean Corpuscular Volume 98.6 fL (83.0-100.0); Platelet Count 186 K/mcL (140-400); Red Blood Count 2.93 M/mcL (3.82-4.97); Red Cell Distribution Width 15.1 % (11.5-14.5)
[2022-04-29 06:33] LABS: Calcium 9.3 mg/dL (8.6-10.3); Potassium 4.1 mEq/L (3.5-5.1)
[2022-04-29] MEDS: *HR* Amiodarone 200 MG TABLET PO SCH (10:17)
[2022-04-29] MEDS: Metoprolol XL (24 HR) Succ 50 MG TAB.ER.24H PO SCH (10:17)
[2022-04-29] MEDS: Apixaban 5 MG TABLET PO SCH (10:17)
[2022-04-29] MEDS: Cyanocobalamin (B-12) 1,000 MCG TABLET PO SCH (10:18)
[2022-04-29] MEDS: lisinopriL 5 MG TABLET PO SCH (10:18)
[2022-04-29] MEDS: polyethylene glycoL 3350 17 GM POWD.PACK PO SCH (10:18)
[2022-04-29] MEDS: Multivit/Ca/Min/Fe/FA 1 TAB TABLET PO SCH (10:18)
[2022-04-29] MEDS: Furosemide 40 MG TABLET PO SCH (10:23)
[2022-04-29] MEDS: Loratadine 10 MG TABLET PO SCH (10:24)
[2022-04-29 11:16] VITALS: BP 114/69; PULSE 80; O2SAT 95
[2022-04-29 14:34] LABS: Influenza A PCR Negative (Negative); Influenza B PCR Negative (Negative); Resp. Syncytial Virus PCR Negative (Negative)
[2022-04-29 14:40] LABS: SARS-CoV-2 by PCR (In House) Negative (Negative)
== END 2022-04-29 18:17 | disposition home or self-care (01) | DRG 280 ==
LOC: EMEROOARM 12:26 → 2NNU 12:26 → SUATTDRO 21:57 → 2NNU 22:15 → 2ANU 04-28 18:16
PROVIDERS: ADMIT Student in an Organized Health Care Education/Training Program; ATTEND Pharmacist